=== PATIENT | female | born 1990 | race Caucasian/White ===

== ENCOUNTER 2016-11-24 14:37 | Emergency (ER) | payer MEDICAID ==
[~2016-11-24] VITALS: Ht 157.5 cm; Wt 83.0 kg
[~2016-11-24 14:37] MED LIST: PRED20 PO; VENTAER INH
[2016-11-24 14:40] VITALS: BP 104/77; PULSE 87; RESP 16; TEMP 98.3; O2SAT 100
[2016-11-24] MEDS ORDERED: SILV1CRE20 TOPICAL (15:08)
[2016-11-24] MEDS ORDERED: BACT800T5 PO (15:09)
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
== END 2016-11-24 15:20 | disposition home or self-care (01) ==
LOC: PHEFT 14:37
DX: T24.131A Burn of first degree of right lower leg, initial encounter (principal); X16.XXXA Contact with hot heating appliances, radiators and pipes, initial encounter; Y93.89 Activity, other specified; Y92.9 Unspecified place or not applicable; Y99.8 Other external cause status
CPT/HCPCS: 99283